=== PATIENT | male | born 1960 | race Two or more races ===

== ENCOUNTER 2022-03-19 19:20 | Emergency (ER) | payer OTHER ==
[~2022-03-19] VITALS: Ht 172.7 cm; Wt 88.5 kg
[~2022-03-19 19:20] MED LIST: CIPRO500 MG; TENORMIN25 MG
[2022-03-19] MEDS ORDERED: METOPROLOL SUCC25 MG PO (19:32)
== END 2022-03-19 21:42 | disposition home or self-care (01) ==
LOC: ER 19:20
DX: U07.1 COVID-19 (principal); I10 Essential (primary) hypertension; Z88.6 Allergy status to analgesic agent; Z88.0 Allergy status to penicillin; Z88.8 Allergy status to other drugs, medicaments and biological substances

== ENCOUNTER 2024-04-13 11:46 | Outpatient (CLI) | payer OTHER ==
[~2024-04-13 11:46] MED LIST changes: +METOPROLOL SUCC25 MG PO
== END 2024-04-13 11:50 | disposition home or self-care (01) ==
LOC: RAD 11:46
DX: M79.642 Pain in left hand (principal)